=== PATIENT | female | born 1970 | race Hispanic/Latino ===

== ENCOUNTER 2016-09-01 11:18 | Emergency (ER) | payer OTHER ==
[2016-09-01 11:57] VITALS: BP 110/79; PULSE 80; RESP 20; TEMP 98.4; O2SAT 98
[2016-09-01 12:57] LABS: ALB/GLOB RATIO 1.4 (1.0-2.1); ALKALINE PHOSPHATASE 47 U/L (38-126); ALT/SGPT 35 U/L (9-52); AST/SGOT 64 U/L (14-36); BILIRUBIN,TOTAL 0.6 mg/dl (0.2-1.3); BLOOD UREA NITROGEN 24 mg/dl (7-17); CALCIUM 8.7 mg/dL (8.4-10.2); CARBON DIOXIDE 22 mmol/L (22-30); CHLORIDE 105 mmol/L (98-107); GFR AFRICAN-AMERICAN > 60; GLUCOSE,RANDOM 81 mg/dL (65-105); SODIUM 136 mmol/l (132-148)
[2016-09-01 13:00] LABS: BASO # 0.1 K/uL (0.0-0.2); BASO % 1.1 % (0.0-2.0); EOS # 0.1 K/uL (0.0-0.7); EOS % 0.9 % (0.0-4.0); HEMATOCRIT 40.9 % (34.0-47.0); LYMPH # 1.8 K/uL (1.0-4.3); LYMPH % 30.6 % (20.0-40.0); MEAN CORPUSCULAR HGB CONC 34.8 g/dL (33.0-37.0); MEAN PLATELET VOLUME 11.3 fl (7.2-11.7); MONO # 0.5 K/uL (0.0-0.8); NEUT # 3.4 K/uL (1.8-7.0); NEUT % 58.4 % (50.0-75.0); NRBC % 0.1 % (0.0-0.0); RED CELL DISTRIBUTION WIDTH 13.2 % (11.5-14.5); WHITE BLOOD COUNT 5.8 K/uL (4.8-10.8)
[2016-09-01 13:05] LABS: POTASSIUM 4.5 MMOL/L (3.6-5.0)
--- NOTE | 2016-09-01 13:23 | ED PDOC ---
HPI: Chest Pain Time Seen by Provider: 09/01/16 12:44 Chief Complaint (Nursing): Dizziness/Lightheaded Chief Complaint (Provider): dizziness History Per: Patient History/Exam Limitations: no limitations Additional Complaint(s): 46yo F in ED with hx of hypothyroidism and HTN in ED c/o of 2-3 days of some dizziness and WAY frontal noted only in the morning and noting systolic>130 and state sthat she has been having CP to left upper axilla this AM made worse when you touch, without radiation no arm pain/numbness, epigatric pain, back pain. no9 nausea or vomiting no vision changes. Pt denies smoking, family hx of cardiac dz or personal hx of cardiac dz Past Medical History Reviewed: Historical Data, Nursing Documentation, Vital Signs Vital Signs: Last Vital Signs Temp 98.4 F 09/01/16 11:55 Pulse 80 09/01/16 11:55 Resp 20 09/01/16 11:55 BP 110/79 09/01/16 11:55 Pulse Ox 98 09/01/16 11:55 - Medical History PMH: Anxiety, Depression, HTN, Hypothyroidism Denies: Diabetes, Hepatitis, HIV, Seizures, Sexually Transmitted Disease - Family History Family History: States: No Known Family Hx - Immunization History Hx Tetanus Toxoid Vaccination: No - Home Medications Home Medications: Ambulatory Orders Medication Instructions Recorded Ibuprofen [Motrin] 600 mg PO Q6 #20 tab 05/08/15 Levothyroxine [Synthroid] 0.05 mg PO DAILY 05/08/15 Oxycodone HCl/Acetaminophen 1 tab PO Q4 #5 tab 05/08/15 [Percocet 325 mg-5 mg] Albuterol 0.083% [Albuterol 0.083% 2.5 mg IH Q8 PRN #100 neb 07/05/15 Inhal Tila (2.5 mg/3 ml) UD] Levofloxacin [Levaquin] 750 mg PO DAILY #5 tablet 07/05/15 Mask, Face [Nebulizer Aerosol Mask 1 dev XX PRN PRN #1 dev 07/05/15 Adult] Nebulizer [Aeroeclipse II] 1 each MC Q8 PRN #1 each 07/05/15 Promethazine/Codeine 5 ml PO Q12 PRN #100 ml 07/05/15 [Codeine/Promethazine 10 MG/5 Ml-6.25 MG/5 Ml] Oxycodone HCl/Acetaminophen 1 tab PO Q6H PRN #15 tab 08/29/15 [Percocet 325 mg-5 mg] Cephalexin [Keflex] 500 mg PO QID 10 Days 09/23/15 Ibuprofen [Motrin] 600 mg PO TID 7 Days 09/23/15 - Allergies Allergies/Adverse Reactions: Allergies Allergy/AdvReac Type Severity Reaction Status Date / Time No Known Allergies Allergy Verified 09/01/16 11:48 LOU Risk Score for UA/NSTEMI - LOU Risk Score Age > 64: NO 3 or more CAD Risk Factors: NO Known CAD (Stenosis greater than 50%): NO Aspirin use in past 7 days: NO Severe Angina: NO EKG ST changes greater than 0.5mm: NO Positive Cardiac Marker: NO LOU Score: 0 Risk %: 5% Curb-65 Severity Score - CURB-65 Severity Score Confusion: No Bun >19mg/dl (>7mmol/L): No Respiratory Rate greater than/equal to 30: No Systolic BP <90 or Diastolic BP less than/equal 60mmHg: No Age >64: No Curb-65 Score: 0 Percentage 30-day mortality: 0.6% Wells Criteria for PE - Wells Criteria for Pulmonary Embolism Clinical Signs and Symptoms of DVT: No P.E is #1 Diagnosis, or Equally Likely: No Heart Rate >100: No Immobilization at least 3 days;Surgery previous 4 weeks: No Previous, objectively diagnosed PE or DVT: No Hemoptysis: No Malignancy w/treatment within 6 months, or palliative: No Total Score: 0 Review of Systems ROS Statement: Except As Marked, All Systems Reviewed And Found Negative Constitutional: Negative for: Fever, Chills, Weakness, Malaise Cardiovascular: Positive for: Chest Pain. Negative for: Palpitations, Orthopnea , Paroxysmal Noc. Dyspnea, Edema, Light Headedness Respiratory: Negative for: Cough, Shortness of Breath, SOB with Exertion, Pleuritic Pain Gastrointestinal: Negative for: Nausea, Vomiting, Abdominal Pain Physical Exam - Reviewed Nursing Documentation Reviewed: Yes Vital Signs Reviewed: Yes - Physical Exam Appears: Positive for: Well, Non-toxic, No Acute Distress Head Exam: Positive for: ATRAUMATIC, NORMAL INSPECTION, NORMOCEPHALIC Skin: Positive for: Normal Color, Warm, DRY Eye Exam: Positive for: EOMI, Normal appearance, PERRL ENT: Positive for: Normal ENT Inspection Neck: Positive for: Normal, Painless ROM Cardiovascular/Chest: Positive for: Regular Rate, Rhythm, Chest Non Tender ( tenderness noted to left upper chest area) Respiratory: Positive for: CNT, Normal Breath Sounds Gastrointestinal/Abdominal: Positive for: Normal Exam, Bowel Sounds, Soft Back: Positive for: Normal Inspection Extremity: Positive for: Normal ROM Neurologic/Psych: Positive for: Alert, Oriented - Laboratory Results Result Diagrams: 09/01/16 12:30 09/01/16 12:30 - ECG ECG Rhythm: Positive for: Normal QRS, Normal ST Segment, Sinus Rhythm O2 Sat by Pulse Oximetry: 98 - Progress ED Course And Treament: pt states that she may attribute her symptoms to her anxiety. 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 pt no longer with CP in ED and to get further testing ie stress test and Holter monitor. pt understands and agrees. considering pt has very low rsik actors for heart dz at 46, she is stable for d.c with f.u Disposition - Clinical Impression Clinical Impression: Chest pain - Patient ED Disposition Is Patient to be Admitted: No Counseled Patient/Family Regarding: Studies Performed, Diagnosis, Need For Followup - Disposition Disposition: Routine/Home Disposition Time: 13:28 Condition: STABLE Instructions: Chest Pain (ED)
--- NOTE | 2016-09-02 07:40 | CARD ---
APPROVED REPORT EKG Measurement Heart [id number] <Conclusion> Normal sinus rhythm Possible Left atrial enlargement Low voltage QRS Borderline ECG
== END 2016-09-01 14:02 | disposition home or self-care (01) ==
LOC: H.ER 11:18
DX: R42 Dizziness and giddiness (principal); R07.9 Chest pain, unspecified; E03.9 Hypothyroidism, unspecified; F32.9 Major depressive disorder, single episode, unspecified; F41.9 Anxiety disorder, unspecified; I10 Essential (primary) hypertension